=== PATIENT | female | born 1955 | race Caucasian/White ===

== ENCOUNTER → 2017-05-23 | Outpatient (CLI) | payer BC ==
[2017-05-23 09:37] LABS: ADD MAN DIFF? NO
[2017-05-23 09:47] LABS: BASO % 1 % (0-3); EOS # 0.1 x10^3/uL (0.0-0.7); EOS % 1 % (0-3); HEMATOCRIT 40.8 % (36.0-47.0); HEMOGLOBIN 13.7 g/dL (12.0-15.5); LYMPH # 2.4 x10^3/uL (1.0-4.8); LYMPH % 40 % (24-48); MEAN CORPUSCULAR HEMOGLOBIN 30 pg (25-35); MEAN CORPUSCULAR HGB CONC 34 g/dL (31-37); MEAN CORPUSCULAR VOLUME 90 fL (79-100); MONO # 0.6 x10^3/uL (0.0-1.1); MONO % 10 % (0-9); NEUT % 49 % (31-73); PLATELET COUNT 197 x10^3/uL (140-400); RED BLOOD COUNT 4.53 x10^6/uL (3.50-5.40); RED CELL DISTRIBUTION WIDTH 14.3 % (11.5-14.5); WHITE BLOOD COUNT 6.1 x10^3/uL (4.0-11.0)
[2017-05-23 09:52] LABS: PARTIAL THROMBOPLASTIN TIME 30 SEC (24-38); PROTHROMBIN TIME PATIENT 12.5 SEC (11.7-14.0)
[2017-05-23 10:07] LABS: ALBUMIN 3.7 g/dL (3.4-5.0); ANION GAP 5 (6-14); BLOOD UREA NITROGEN 23 mg/dL (7-20); CALCIUM 9.9 mg/dL (8.5-10.1); CARBON DIOXIDE 32 mmol/L (21-32); CHLORIDE 103 mmol/L (98-107); CREATININE 0.8 mg/dL (0.6-1.0); GFR 73.2; GLUCOSE 97 mg/dL (70-99); SODIUM 140 mmol/L (136-145)
[2017-05-23 11:24] LABS: SEDIMENTATION RATE 9 (0-25)
[2017-05-23 13:45] LABS: BILIRUBIN,URINE NEGATIVE (NEG); CLARITY,URINE CLEAR; COLOR,URINE YELLOW; GLUCOSE,URINE NEGATIVE (NEG); NITRITE,URINE POSITIVE (NEG); PH,URINE 6.5; PROTEIN,URINE NEGATIVE (NEG-TRACE); UROBILINOGEN,URINE 0.2 mg/dL (0.2 mg/dL)
[2017-05-23 13:51] LABS: BACTERIA,URINE MANY /HPF (0-FEW); RBC,URINE 0 /HPF (0-2); SQUAMOUS EPITHELIAL CELL,UR MOD /LPF; WBC,URINE 20-40 /HPF (0-4)
[2017-05-24 03:15] LABS: MRSA BY PCR Negative (Negative)
== END | disposition home or self-care (01) ==
LOC: SURGPAT 14:16
DX: Z01.818 Encounter for other preprocedural examination (principal); I10 Essential (primary) hypertension; J84.10 Pulmonary fibrosis, unspecified; R79.89 Other specified abnormal findings of blood chemistry
CPT/HCPCS: 36415; 71046; 80048; 81001; 82040; 82306; 85025; 85610; 85651; 85730; 87086; 87641; 93005

== ENCOUNTER → 2017-06-13 | Outpatient (CLI) | payer BC ==
[2017-06-13 16:37] LABS: BILIRUBIN,URINE NEGATIVE (NEG); CLARITY,URINE CLEAR; COLOR,URINE YELLOW; GLUCOSE,URINE NEGATIVE (NEG); NITRITE,URINE NEGATIVE (NEG); PH,URINE 5.5; PROTEIN,URINE NEGATIVE (NEG-TRACE); UROBILINOGEN,URINE 0.2 mg/dL (0.2 mg/dL)
[2017-06-13 16:51] LABS: BACTERIA,URINE 0 /HPF (0-FEW); RBC,URINE OCC /HPF (0-2); SQUAMOUS EPITHELIAL CELL,UR FEW /LPF; WBC,URINE OCC /HPF (0-4)
== END | disposition home or self-care (01) ==
LOC: LAB 16:07
DX: Z01.812 Encounter for preprocedural laboratory examination (principal)
CPT/HCPCS: 81001

== ENCOUNTER 2017-06-21 05:53 | Inpatient (IN) | payer BC ==
[2017-06-21] MEDS ORDERED: CELECOXIB 200 MG CAPSULE. PO (06:00)
[2017-06-21] MEDS ORDERED: HYDROcodone/APAP 7.5/325MG 1 TAB TABLET PO (06:00)
[2017-06-21] MEDS: IV RINGERS,LACTATED 1000ML 1,000 ML IV (06:37)
[2017-06-21] MEDS ORDERED: ONDANSETRON PF 4 MG/2 ML VIAL. IV (07:00)
[2017-06-21] MEDS ORDERED: fentaNYL PF VIAL 100 MCG/2 ML VIAL IV ×3 (07:00→09:45)
[2017-06-21] MEDS ORDERED: LIDOCAINE 1% PF 2 ML VIAL. ID (07:00)
[2017-06-21] MEDS ORDERED: DEXAMETHASONE SOD PHOS 20 MG/5 ML VIAL. (07:04)
[2017-06-21] MEDS ORDERED: FAMOTIDINE 20 MG/2 ML VIAL (07:04)
[2017-06-21] MEDS ORDERED: ROCURONIUM 50 MG/5 ML VIAL. (07:04)
[2017-06-21] MEDS ORDERED: PROPOFOL 20 ML IV (07:04)
[2017-06-21] MEDS ORDERED: ONDANSETRON PF 4 MG/2 ML VIAL. (07:04)
[2017-06-21] MEDS ORDERED: LIDOCAINE 1% PF 5 ML VIAL. (07:04)
[2017-06-21] MEDS ORDERED: MIDAZOLAM HCL/PF 2 MG/2 ML VIAL. (07:05)
[2017-06-21] MEDS ORDERED: fentaNYL PF VIAL 100 MCG/2 ML VIAL ×2 (07:05→08:06)
[2017-06-21] MEDS: TRANEXAMIC ACID 1,000 MG in IV NS 50ML -- 1ST BAG INJ (07:40)
[2017-06-21] MEDS: MORPHINE SULFATE 5 MG, KETOROLAC 30 MG, ROPIVacaine 0.5% PF 60 ML, EPINEPHrine 0.5 MG i... INT ART (07:59)
[2017-06-21] MEDS: TOBRAMYCIN POWDER 1.2 GM VIAL. (07:59)
[2017-06-21] MEDS: VANCOMYCIN 1 GM VIAL. (07:59)
[2017-06-21] MEDS ORDERED: LABETALOL 20 MG/4 ML DISP.SYRIN. ×2 (08:20→08:22)
[2017-06-21] MEDS: TRANEXAMIC ACID 1,000 MG in IV NS 50ML -- 2ND BAG INJ (08:59)
[2017-06-21] MEDS ORDERED: SEVOFLURANE > 120 MINUTES. IH (09:26)
[2017-06-21] MEDS ORDERED: DESFLURANE > 120 MINUTES IH (09:26)
[2017-06-21] MEDS ORDERED: oxyCODONE/APAP 5/325 1 TAB TABLET PO (09:45)
[2017-06-21] MEDS ORDERED: METOCLOPRAMIDE HCL 10 MG/2 ML VIAL. IV (09:45)
[2017-06-21] MEDS ORDERED: MORPHINE SULFATE 4 MG/ML DISP.SYRIN. IV ×2 (09:45)
[2017-06-21] MEDS ORDERED: traMADol 50 MG TABLET PO ×2 (09:45)
[2017-06-21] MEDS ORDERED: MORPHINE SULFATE 10 MG/ML VIAL. IV (09:45)
[2017-06-21] MEDS ORDERED: ACETAMINOPHEN 325 MG TABLET. PO (09:45)
[2017-06-21] MEDS ORDERED: diphenhydrAMINE 50 MG/ML VIAL IV (09:45)
[2017-06-21] MEDS ORDERED: 0.9 % SODIUM CHLORIDE 10 ML DISP.SYRIN. IV (09:45)
[2017-06-21] MEDS ORDERED: MORPHINE SULFATE 2 MG/ML DISP.SYRIN. IV (09:45)
[2017-06-21] MEDS: fentaNYL PF VIAL 100 MCG/2 ML VIAL IV ×4 (09:45→10:08)
[2017-06-21] MEDS ORDERED: PROCHLORPERAZINE 10 MG/2 ML VIAL. IV (09:45)
[2017-06-21] MEDS ORDERED: DEXTROSE 50% 25 GM / 50ML DISP.SYRIN. IV (09:45)
[2017-06-21] MEDS: MORPHINE SULFATE 4 MG/ML DISP.SYRIN. IV ×3 (09:54→10:26)
[2017-06-21] MEDS: PROCHLORPERAZINE 10 MG/2 ML VIAL. IV (09:58)
[2017-06-21] MEDS: IV DEXTROSE 5 %-0.45 % NACL 1,000 ML IV (11:08)
[2017-06-21] MEDS: HYDROcodone/APAP 7.5/325MG 1 TAB TABLET PO ×3 (12:12→20:14)
[2017-06-21] MEDS: HYDROcodone/APAP 10/325 1 TAB TABLET PO (12:46)
[2017-06-21] MEDS: GABAPENTIN 300 MG CAPSULE. PO ×2 (13:45→20:14)
[2017-06-21] MEDS: FERROUS SULFATE 325 MG TABLET. PO (16:30)
[2017-06-21] MEDS: KETOROLAC 30 MG, BUPIVACAINE MPF 0.25% 20 ML, EPINEPHrine 0.5 MG in TOTAL VOLUME SYRING... INT ART (18:50)
[2017-06-21] MEDS: ASPIRIN ENTERIC COATED 325 MG TABLET.DR. PO (20:14)
[2017-06-22] MEDS: HYDROcodone/APAP 10/325 1 TAB TABLET PO ×4 (01:30→16:30)
[2017-06-22] MEDS: IV DEXTROSE 5 %-0.45 % NACL 1,000 ML IV (01:33)
[2017-06-22] MEDS: PROCHLORPERAZINE 5 MG TABLET. PO ×2 (04:36→10:17)
[2017-06-22] MEDS: HYDROcodone/APAP 7.5/325MG 1 TAB TABLET PO (04:37)
[2017-06-22] MEDS ORDERED: MAGNESIUM HYDROXIDE 2,400 MG/30 ML ORAL.SUSP. PO (06:00)
[2017-06-22] MEDS: PANTOPRAZOLE 40 MG TABLET.DR. PO (06:34)
[2017-06-22] MEDS: KETOROLAC 30 MG, BUPIVACAINE MPF 0.25% 20 ML, EPINEPHrine 0.5 MG in TOTAL VOLUME SYRING... INT ART (06:35)
[2017-06-22 07:49] LABS: HEMATOCRIT 34.2 % (36.0-47.0); HEMOGLOBIN 11.5 g/dL (12.0-15.5); MEAN CORPUSCULAR HGB CONC 34 g/dL (31-37)
[2017-06-22] MEDS: OXYBUTYNIN CHLORIDE 5 MG TABLET PO (08:43)
[2017-06-22] MEDS: FERROUS SULFATE 325 MG TABLET. PO ×2 (08:43→16:30)
[2017-06-22] MEDS: hydroCHLOROthiazide 12.5 MG CAPSULE PO (08:44)
[2017-06-22] MEDS: ASPIRIN ENTERIC COATED 325 MG TABLET.DR. PO ×2 (08:44→20:28)
[2017-06-22] MEDS: GABAPENTIN 300 MG CAPSULE. PO ×3 (08:44→20:29)
[2017-06-22] MEDS: MELOXICAM 7.5 MG TABLET PO (08:44)
[2017-06-22] MEDS: MULTIVITAMIN with MINERAL TABLET. PO (08:45)
[2017-06-22] MEDS: CHOLECALCIFEROL (VITAMIN D3) 1,000 UNIT TABLET PO (08:45)
[2017-06-22] MEDS: SENNOSIDES/DOCUSATE 8.6/50MG TABLET. PO (08:45)
[2017-06-22] MEDS: LISINOPRIL 20 MG TABLET PO (08:45)
[2017-06-22] MEDS: LIDOCAINE (700MG/PATCH) PATCH. TP ×2 (08:46→20:29)
[2017-06-22] MEDS ORDERED: FLUTICASONE 50MCG/NASAL SPRAY 16GM BOTTLE. NS (09:00)
[2017-06-22] MEDS ORDERED: BISACODYL 10 MG SUPP.RECT. PR (16:00)
[2017-06-22] MEDS: oxyCODONE/APAP 7.5/325 1 TAB TABLET PO (20:28)
[2017-06-22] MEDS: ZOLPIDEM 5 MG TABLET. PO (20:28)
[2017-06-22] MEDS: PATCH REMOVAL. MC (20:37)
[2017-06-23] MEDS: HYDROcodone/APAP 10/325 1 TAB TABLET PO ×3 (01:53→21:00)
[2017-06-23 05:21] LABS: HEMOGLOBIN 10.8 g/dL (12.0-15.5); MEAN CORPUSCULAR HGB CONC 34 g/dL (31-37)
[2017-06-23] MEDS: PANTOPRAZOLE 40 MG TABLET.DR. PO (05:57)
[2017-06-23] MEDS: oxyCODONE/APAP 7.5/325 1 TAB TABLET PO ×4 (05:57→16:52)
[2017-06-23] MEDS: FERROUS SULFATE 325 MG TABLET. PO ×2 (08:26→16:56)
[2017-06-23] MEDS: GABAPENTIN 300 MG CAPSULE. PO ×3 (08:26→21:00)
[2017-06-23] MEDS: SENNOSIDES/DOCUSATE 8.6/50MG TABLET. PO (08:26)
[2017-06-23] MEDS: CHOLECALCIFEROL (VITAMIN D3) 1,000 UNIT TABLET PO (08:27)
[2017-06-23] MEDS: OXYBUTYNIN CHLORIDE 5 MG TABLET PO (08:27)
[2017-06-23] MEDS: MULTIVITAMIN with MINERAL TABLET. PO (08:27)
[2017-06-23] MEDS: MELOXICAM 7.5 MG TABLET PO (08:27)
[2017-06-23] MEDS: ASPIRIN ENTERIC COATED 325 MG TABLET.DR. PO ×2 (08:28→21:00)
[2017-06-23] MEDS: hydroCHLOROthiazide 12.5 MG CAPSULE PO (08:31)
[2017-06-23] MEDS: LISINOPRIL 20 MG TABLET PO (08:32)
[2017-06-23] MEDS: PATCH REMOVAL. MC (08:35)
[2017-06-23] MEDS ORDERED: MORPHINE SULFATE 4 MG/ML DISP.SYRIN. IV (14:26)
[2017-06-23] MEDS: LIDOCAINE (700MG/PATCH) PATCH. TP (21:00)
[2017-06-23] MEDS: tiZANidine 4 MG TABLET. PO (21:00)
[2017-06-24] MEDS: HYDROcodone/APAP 10/325 1 TAB TABLET PO ×4 (01:17→12:47)
[2017-06-24 03:26] LABS: HEMATOCRIT 29.3 % (36.0-47.0); HEMOGLOBIN 9.9 g/dL (12.0-15.5); MEAN CORPUSCULAR HGB CONC 34 g/dL (31-37)
[2017-06-24] MEDS: PANTOPRAZOLE 40 MG TABLET.DR. PO (07:23)
[2017-06-24] MEDS: FERROUS SULFATE 325 MG TABLET. PO ×2 (07:47→08:07)
[2017-06-24] MEDS: GABAPENTIN 300 MG CAPSULE. PO (08:07)
[2017-06-24] MEDS: hydroCHLOROthiazide 12.5 MG CAPSULE PO (08:07)
[2017-06-24] MEDS: CHOLECALCIFEROL (VITAMIN D3) 1,000 UNIT TABLET PO (08:07)
[2017-06-24] MEDS: MULTIVITAMIN with MINERAL TABLET. PO (08:07)
[2017-06-24] MEDS: SENNOSIDES/DOCUSATE 8.6/50MG TABLET. PO (08:07)
[2017-06-24] MEDS: OXYBUTYNIN CHLORIDE 5 MG TABLET PO (08:08)
[2017-06-24] MEDS: ASPIRIN ENTERIC COATED 325 MG TABLET.DR. PO (08:08)
[2017-06-24] MEDS: MELOXICAM 7.5 MG TABLET PO (08:08)
[2017-06-24] MEDS: PATCH REMOVAL. MC (08:13)
[2017-06-24] MEDS: LISINOPRIL 20 MG TABLET PO (09:00)
[2017-06-24] MEDS: CALCIUM CARBONATE 500 MG TAB.CHEW PO (09:52)
== END 2017-06-24 15:00 | disposition home health service (06) | DRG 470 ==
LOC: OPSVCIP 05:53 → 4 SOUTHEST 10:51
PROC: 0SRC0J9 Replacement of Right Knee Joint with Synthetic Substitute, Cemented, Open Approach (ICD-10-PCS; principal; 2017-06-21 07:10)
DX: M17.11 Unilateral primary osteoarthritis, right knee (principal); G89.29 Other chronic pain; I10 Essential (primary) hypertension; M79.7 Fibromyalgia; Z82.62 Family history of osteoporosis; Z90.710 Acquired absence of both cervix and uterus; Z88.8 Allergy status to other drugs, medicaments and biological substances
CPT/HCPCS: 36415; 73560; 85014; 85018; 86850; 86900; 86901; 88305; 88311; 97110-GO; 97116-GP; 97150-GP; 97162-GP; 97165-GO; 97530-GP; 97535-GO; C1713; J0171; J0690; J0780; J1100; J1885; J2250; J2270; J2405; J2704; J2795; J3010; J3260; J3370; J3490; J7120; Q0164; S0028

== ENCOUNTER → 2020-12-08 | Day surgery (SDC) | payer OTHER ==
[~2020-12-08] VITALS: Ht 170.2 cm; Wt 80.0 kg
[~2020-12-08] MED LIST: ASPI325T11 PO; CHOL100013 PO; DULO30CA2 PO; FERR325T14 PO; FLUT9.9S NS; GABA300C18 PO; HYDR-3135 PO; IV RINGERS,LACTATED 1000ML 1,000 ML IV SCH; LIDO700A21 TP; LIDOCAINE 2% PF 5 ML VIAL. ONE; LISI1TAB37 PO; MELO15TA23 PO; OMEP20CA16 PO; OXYB5TAB10 PO; PROPOFOL 10 MG/ML (20ML) VIAL. IV ONE; TIZA4TAB2 PO
[2020-12-08 12:46] VITALS: BP 147/72
--- NOTE | 2020-12-08 12:55 | PDOC1 ---
History and Physical Date of Admission Date of Admission DATE: 12/08/20 TIME: 12:46 Identification/Chief Complaint Chief Complaint Dysphagia/polyp surveillance. Source Source: Chart review, Patient History of Present Illness History of Present Illness 65 y/o female with h/o polyps; family history of colon cancer as well in sister and uncle. Last exam 5-6 years ago. Long h/o heartburn and occasional dysphagia. On chronic PPI. FH of gastric cancer as well. Requests EGD, too. Prior jacy. Past Medical History Cardiovascular: HTN Pulmonary: Other (PEDRO) Musculoskeletal: Osteoarthritis, Other (FMS) Renal/: Other (endometriosis) Past Surgical History Past Surgical History: Cholecystectomy, Hysterectomy, Other (joint replacement) Family History Family History: Cancer (ovarian/mother), Heart Disease Social History Smoke: No ALCOHOL: none Drugs: None Current Medications Current Medications Current Medications Ringer's Solution 1,000 ml @ 50 mls/hr Q20H IV ; Start 12/08/20 at 07:00; Stop 12/08/20 at 18:59 Active Scripts Active Reported Ferrous Sulfate 325 Mg Tablet 1 Tab PO BID Aspirin Ec (Aspirin) 325 Mg Tablet. 325 Mg PO BID Lisinopril-Hctz 20-12.5 Mg Tab (Lisinopril/Hydrochlorothiazide) 1 Each Tablet 1 Tab PO DAILY Vitamin D (Cholecalciferol (Vitamin D3)) 1,000 Unit Capsule 3,000 Unit PO DAILY Ferrous Sulfate 325 Mg Tablet 325 Mg PO DAILY Tizanidine Hcl 4 Mg Tablet 4 Mg PO HS PRN Oxybutynin Chloride 5 Mg Tablet 15 Mg PO DAILY Meloxicam 15 Mg Tablet 15 Mg PO DAILY Lidocaine 1 Each Adh..patch 1 Each TP Flonase Allergy Relief (Fluticasone Propionate) 9.9 Ml [place].susp 2 Sprays NS PRN DAILY PRN Gabapentin 300 Mg Capsule 300 Mg PO TID [place] 10-325 Tablet (Acetaminophen/Hydrocodone Bitart) 1 Each Tablet 1 Tab PO PRN Q6HRS PRN Omeprazole 20 Mg Capsule.dr 40 Mg PO DAILY Allergies Allergies: Coded Allergies: No Known Drug Allergies (Unverified , 06/21/17) ROS Review of System Otherwise negative. Physical Exam General: Alert, Oriented X3, Cooperative, No acute distress HEENT: Atraumatic, PERRLA, EOMI Lungs: Clear to auscultation, Normal air movement Heart: S1S2, RRR, no gallops, no murmurs Abdomen: Normal bowel sounds, Soft Rectal Exam: deferred (to time of procedure) Extremities: No cyanosis, No edema Skin: No significant lesion Neuro: Normal speech, Strength at 5/5 X4 ext, Normal tone, Sensation intact, Cranial nerves 3-12 NL, Reflexes 2+ Psych/Mental Status: Mental status NL, Mood NL Vitals Vitals See nursing notes. VTE Prophylaxis Ordered VTE Prophylaxis Devices: No VTE Pharmacological Prophylaxi: No Assessment/Plan Assessment/Plan IMP: H/o polyps, due. FH of colon cancer as well. Dysphagia/GERD REC: Colonoscopy/EGD. AALIYAH TRAMMELL MD Dec 08, 2020 12:55
--- NOTE | 2020-12-08 13:55 | PDOC4 ---
PROCEDURE Procedure Colonoscopy/EGD with biopsies, dilation Indication: H/o polyps/dysphagia. Meds: per anesthesia Findings: E--Healed reflux at 44cm. No stricture. G--striped antral erythema, biopsied. D---Normal to second portion. --Dilated with 52F Nelson w/o resistance. FRANCI: normal --'Scoped advanced to cecum. Prep adequate. Mucosa normal. No tic's, polyps, etc. noted. Normal retroflex. Karla. well. IMP: GERD H/o polyps. Antral erythema. REC: continue meds, diet f/u path See me in 2 weeks. AALIYAH TRAMMELL MD Dec 08, 2020 13:55
[2020-12-08 14:15] VITALS: BP 159/67
--- NOTE | 2020-12-10 16:11 | PATHOLOGY ---
[facility] Accession Number: [id number] . 01 Material submitted: . stomach - ANTRAL BIOPSY . 01 Clinical history: . GERD EGD DYSPHAGIA, HX POLYPS . 02 Diagnosis: Gastric biopsy, antrum: - Chronic gastritis, mild. LBQ 12/10/2020 1049 Local . 02 Comment: Sections of the gastric biopsy reveal segments of gastric antral mucosa showing congestion and mild chronic inflammation. A properly controlled immunoperoxidase stain for Helicobacter is negative for Helicobacter organisms. There is no evidence of malignancy. (JPM/db; 12/10/2020) . Special stain performed: Immunoperoxidase stain for Helicobacter on A1 . 02 Electronically signed: . Iron Goins MD, Pathologist NPI- [id number] . 01 Gross description: . The specimen is received in formalin, labeled "McAlexander, Berhane, antral BX" and consists of 3 callejas irregular tissue aggregating 0.5 x 0.4 x 0.1 cm which are submitted in toto in A1. (BELKOFSKI; 12/09/2020) DKA/DKA 12/09/2020 1752 Local . 02 Pathologist provided ICD-10: K29.50 . 02 CPT . 697843, [id number] Specimen Comment: A courtesy copy of this report has been sent to [phone], [phone] Specimen Comment: [id number] Specimen Comment: Report sent to Performed at: 01 [facility] [address] [facility] [address] [place] [id number] MD Hawk Owens MD Phone: [phone] Performed at: 02 [facility] [address] [place], [place] [id number] MD Iron Goins MD Phone: [phone]
== END | disposition home or self-care (01) ==
LOC: SURG 11:56
PROVIDERS: ATTEND Internal Medicine Gastroenterology
DX: Z12.11 Encounter for screening for malignant neoplasm of colon (principal); R13.10 Dysphagia, unspecified; K29.50 Unspecified chronic gastritis without bleeding; K21.00 Gastro-esophageal reflux disease with esophagitis, without bleeding; K31.89 Other diseases of stomach and duodenum; K63.89 Other specified diseases of intestine; G47.33 Obstructive sleep apnea (adult) (pediatric); I10 Essential (primary) hypertension; M19.90 Unspecified osteoarthritis, unspecified site; Z86.010 Personal history of colon polyps; Z90.49 Acquired absence of other specified parts of digestive tract; Z90.710 Acquired absence of both cervix and uterus; Z98.890 Other specified postprocedural states; Z79.899 Other long term (current) drug therapy; Z20.822 Contact with and (suspected) exposure to COVID-19; Z82.49 Family history of ischemic heart disease and other diseases of the circulatory system; Z83.3 Family history of diabetes mellitus; Z80.0 Family history of malignant neoplasm of digestive organs
CPT/HCPCS: 43239; 43450; 45378; 87426; J2704; 88305; 88342